=== PATIENT | male | born 1990 | race Caucasian/White ===

== ENCOUNTER 2023-04-30 17:47 | Emergency (ER) | payer MEDICAID ==
[~2023-04-30] VITALS: Ht 167.6 cm; Wt 75.0 kg
[2023-04-30 18:05] VITALS: TEMP 98.9; O2SAT 99
[2023-04-30] MEDS ORDERED: IBUPROFEN 600MG TABLET PO ONE (21:45)
[2023-04-30] MEDS ORDERED: CLINDAMYCIN HCL 150MG CAPSULE PO SCH (21:45)
[2023-04-30 23:30] VITALS: BP 130/66; PULSE 80; RESP 16
[2023-04-30] MEDS ORDERED: IBUPROFEN 600MG TABLET PO NR (23:30)
[2023-05-01] MEDS ORDERED: CLIN-194 MT (02:16)
== END 2023-05-01 02:28 | disposition left against medical advice (07) ==
LOC: ER 18:06
DX: H02.89 Other specified disorders of eyelid (principal)
CPT/HCPCS: 99284

== ENCOUNTER 2023-08-26 12:36 | Emergency (ER) | payer MEDICAID ==
[~2023-08-26] VITALS: Ht 172.7 cm; Wt 79.0 kg
[~2023-08-26 12:36] MED LIST: CLIN-194 MT
[2023-08-26 12:41] VITALS: O2SAT 98
[2023-08-26] MEDS: KETOROLAC 60MG/2ML VIAL IM STA (12:48)
[2023-08-26] MEDS ORDERED: IBUP-2029 PO (14:11)
[2023-08-26 15:22] VITALS: BP 133/74; PULSE 100; RESP 16; TEMP 98
== END 2023-08-26 15:27 | disposition home or self-care (01) ==
LOC: ER 12:36
DX: S62.306A Unspecified fracture of fifth metacarpal bone, right hand, initial encounter for closed fracture (principal); X58.XXXA Exposure to other specified factors, initial encounter; Y93.89 Activity, other specified; Y92.89 Other specified places as the place of occurrence of the external cause; Y99.8 Other external cause status
CPT/HCPCS: 99284; 73110; 73130; 96372; J1885

== ENCOUNTER 2023-11-04 12:14 | Emergency (ER) | payer MEDICAID ==
[~2023-11-04] VITALS: Ht 167.6 cm; Wt 70.0 kg
[~2023-11-04 12:14] MED LIST changes: +IBUP-2029 PO
[2023-11-04 12:20] VITALS: O2SAT 99
[2023-11-04 16:07] LABS: BASOPHILS % 1.2 % (0.0-2.0); DIFFERENTIAL COMMENT 0; EOSINOPHILS % 0.9 % (0.0-5.0); HEMATOCRIT. 22.8 % (42.0-52.0); HEMOGLOBIN. 7.5 g/dL (14.0-18.0); LYMPHOCYTES % 19.3 % (20.0-50.0); MEAN CORPUSCULAR HEMOGLOBIN 24.9 pg (28.0-32.0); MEAN CORPUSCULAR HGB CONC 32.9 g/dL (31.0-37.0); MEAN CORPUSCULAR VOLUME 75.6 fL (80.0-94.0); MEAN PLATELET VOLUME 8.6 fl (7.4-10.4); MONOCYTES % 9.7 % (2.0-8.0); NEUTROPHILS % 68.9 % (40.0-76.0); PLATELET 110 x1000/uL (130-400); RED BLOOD CELL COUNT 3.01 mill/uL (4.7-6.1); WHITE BLOOD COUNT 5.7 x1000/uL (4.5-11.0)
[2023-11-04 16:12] LABS: CHLORIDE 97 mEq/L (98-107); POTASSIUM 3.7 mEq/L (3.5-5.1); SODIUM 133 mEq/L (136-145)
[2023-11-04 16:14] LABS: CALCIUM 9.5 mg/dL (8.7-10.4); CARBON DIOXIDE 25 mEq/L (21-32)
[2023-11-04 16:19] LABS: CREATININE 0.7 mg/dL (0.6-1.3); GLUCOSE 90 mg/dL (70-105); UREA NITROGEN BLOOD 19 mg/dL (9-23)
[2023-11-04] MEDS: SODIUM CHLORIDE 0.9% 1,000 ML IV ONE (17:42)
[2023-11-04] MEDS: ONDANSETRON HCL 4MG/2ML INJ IV STA (17:47)
[2023-11-04] MEDS: ACETAMINOPHEN 325MG TABLET PO STA (17:48)
[2023-11-04 18:25] LABS: CREATINE KINASE 113 IU/L (46-171)
[2023-11-04 18:26] VITALS: BP 114/64; PULSE 88; RESP 14; TEMP 98
== END 2023-11-04 18:27 | disposition home or self-care (01) ==
LOC: ER 12:14
DX: S46.912A Strain of unspecified muscle, fascia and tendon at shoulder and upper arm level, left arm, initial encounter (principal); S46.911A Strain of unspecified muscle, fascia and tendon at shoulder and upper arm level, right arm, initial encounter; X58.XXXA Exposure to other specified factors, initial encounter; Y93.89 Activity, other specified; Y92.89 Other specified places as the place of occurrence of the external cause; Y99.8 Other external cause status
CPT/HCPCS: 99284; 96374; 71045; 96361; 80048; 82550; 85025; 36415; 73030; 73060; J2405; J7030

== ENCOUNTER 2024-02-27 15:03 | Emergency (ER) | payer MEDICAID ==
[~2024-02-27] VITALS: Ht 167.6 cm; Wt 65.0 kg
[2024-02-27 15:16] VITALS: O2SAT 99
[2024-02-27] MEDS ORDERED: BO1 TP (20:12)
[2024-02-27 20:34] VITALS: BP 111/58; PULSE 79; RESP 16; TEMP 36.83628; O2SAT 99
== END 2024-02-27 20:44 | disposition home or self-care (01) ==
LOC: ER 15:03
DX: S61.300A Unspecified open wound of right index finger with damage to nail, initial encounter (principal); X58.XXXA Exposure to other specified factors, initial encounter; Y93.89 Activity, other specified; Y92.89 Other specified places as the place of occurrence of the external cause; Y99.8 Other external cause status
CPT/HCPCS: 99282; Z7610 ×2

== ENCOUNTER 2024-09-02 12:11 | Emergency (ER) | payer MEDICAID ==
[~2024-09-02] VITALS: Ht 167.6 cm; Wt 68.0 kg
[~2024-09-02 12:11] MED LIST changes: +BO1 TP
[2024-09-02 12:29] VITALS: TEMP 36.6; O2SAT 98
[2024-09-02] MEDS ORDERED: CLIN-194 MT (14:21)
[2024-09-02 15:50] VITALS: BP 130/72; PULSE 97; RESP 18; O2SAT 98
== END 2024-09-02 15:55 | disposition home or self-care (01) ==
LOC: ER 12:11
DX: L03.114 Cellulitis of left upper limb (principal); L70.9 Acne, unspecified; J45.909 Unspecified asthma, uncomplicated; Z79.899 Other long term (current) drug therapy
CPT/HCPCS: 99283

== ENCOUNTER 2024-09-23 22:54 | Inpatient (IN) | payer MEDICAID ==
[~2024-09-23] VITALS: Ht 167.6 cm; Wt 65.8 kg
[2024-09-23] MEDS: PANTOPRAZOLE SODIUM 40 MG/VIAL IV ONE (23:15)
[2024-09-23] MEDS: OCTREOTIDE 1,000 MCG in SODIUM CHLORIDE 0.9% 98 ML IV ONE (23:15)
[2024-09-23 23:27] LABS: MEAN CORPUSCULAR HGB CONC 28.9 g/dL (31.0-37.0); MEAN CORPUSCULAR VOLUME 72.7 fL (80.0-94.0); MEAN PLATELET VOLUME 9.7 fl (7.4-10.4); PLATELET 134 x1000/uL (130-400); RED BLOOD CELL COUNT 1.36 mill/uL (4.7-6.1); WHITE BLOOD COUNT 10.1 x1000/uL (4.5-11.0)
[2024-09-23 23:33] LABS: CARBON DIOXIDE 18 mEq/L (21-32); CHLORIDE 94 mEq/L (98-107); POTASSIUM 3.6 mEq/L (3.5-5.1); SODIUM 132 mEq/L (136-145)
[2024-09-23 23:34] LABS: CALCIUM 7.4 mg/dL (8.7-10.4)
[2024-09-23] MEDS: ONDANSETRON HCL 4MG/2ML INJ IV STA (23:37)
[2024-09-23 23:39] LABS: ETHANOL BLOOD 237 mg/dL (<10); GLUCOSE 165 mg/dL (70-105); TROPONIN I HIGH SENSITIVITY 5 ng/L (3.0-53); UREA NITROGEN BLOOD 39 mg/dL (9-23)
[2024-09-23 23:40] LABS: ALANINE AMINOTRANSFERASE 144 IU/L (10-49); ALBUMIN 2.4 g/dL (3.2-4.8); ASPARTATE AMINOTRANSFERASE 413 IU/L (<34)
[2024-09-23 23:41] LABS: BILIRUBIN TOTAL 1.9 mg/dL (0.1-1.0); DIFFERENTIAL COMMENT 1; HEMATOCRIT. 9.9 % (42.0-52.0); HEMOGLOBIN. 2.8 g/dL (14.0-18.0); PROTEIN TOTAL 5.1 g/dL (6.0-8.3)
[2024-09-23 23:42] LABS: PROTHROMBIN TIME 20.3 sec (9.6-11.0)
[2024-09-23] MEDS: CEFTRIAXONE 1GM/50ML 50 ML IV ONE (23:46)
[2024-09-23 23:58] LABS: CREATININE 1.4 mg/dL (0.6-1.3)
[2024-09-24] VITALS (27 sets, daily range): BP systolic 104–129; BP diastolic 35–74; PULSE 15–128; RESP 11–30; TEMP 36.28068–37.7; O2SAT 99–100
[2024-09-24 00:02] LABS: HYPOCHROMASIA 2+; MICROCYTOSIS 1+; PLATELET ESTIMATE NORMAL
[2024-09-24] MEDS: PANTOPRAZOLE 80 MG in SODIUM CHLORIDE 0.9% 100 ML IV SCH ×2 (00:58→22:22)
[2024-09-24] MEDS: PANTOPRAZOLE SODIUM 40 MG/VIAL IV NR (01:39)
[2024-09-24 02:06] LABS: TROPONIN I HIGH SENSITIVITY 8 ng/L (3.0-53)
[2024-09-24] MEDS ORDERED: DOCUSATE SODIUM 100MG CAPSULE PO PRN (03:15)
[2024-09-24] MEDS ORDERED: IPRATROPIUM/ALBUTEROL 0.5-3(2.5)MG/3ML NEB HHN PRN (03:15)
[2024-09-24] MEDS ORDERED: DEXTROSE 50% WATER 50ML SYRINGE IV PRN (03:15)
[2024-09-24] MEDS ORDERED: MAGNESIUM/ALUMINUM HYDROXIDE/SIMETHICONE 30ML UDC PO PRN (03:15)
[2024-09-24] MEDS ORDERED: CLONIDINE 0.1MG TABLET PO PRN (03:15)
[2024-09-24] MEDS ORDERED: NALOXONE HCL 0.4MG/ML VIAL IV PRN (03:30)
[2024-09-24] MEDS: ONDANSETRON HCL 4MG/2ML INJ IV PRN (03:31)
[2024-09-24] MEDS: SODIUM CHLORIDE 0.9% 1,000 ML IV SCH ×2 (03:47→09:45)
[2024-09-24 04:10] LABS: IRON 37 ug/dL (65-175)
[2024-09-24 04:13] LABS: TOTAL IRON BINDING CAPACITY 257 ug/dl (250-425)
[2024-09-24] MEDS: INSULIN LISPRO 100 UNITS/ML SUBCUT SCH (08:00)
[2024-09-24] MEDS: ACETAMINOPHEN 325MG TABLET PO PRN (10:45)
[2024-09-24 16:44] LABS: FOLIC ACID (FOLATE) SERUM 4.11 ng/mL (>5.38)
[2024-09-24 16:45] LABS: VITAMIN B12 SERUM 1326 pg/mL (211-911)
[2024-09-24 18:25] LABS: HEPATITIS B SURFACE ANTIGEN NEGATIVE (Negative)
[2024-09-24 18:45] LABS: HEPATITIS A AB IGM NEGATIVE (Negative)
[2024-09-24 18:46] LABS: HEPATITIS B CORE AB IGM NEGATIVE (Negative); HEPATITIS C AB NON REACTIVE (Neg) (Negative)
[2024-09-24] MEDS ORDERED: Venofer 200mg IV x3 days XX SCH (20:00)
[2024-09-24 20:30] LABS: CLARITY URINE CLEAR (CLEAR); COLOR URINE DARK YELLOW (YELLOW); GLUCOSE URINE NEGATIVE (NEGATIVE); KETONES URINE NEGATIVE (NEGATIVE); LEUKOCYTE ESTERASE URINE TRACE (NEGATIVE); NITRITE URINE NEGATIVE (NEGATIVE); OCCULT BLOOD URINE TRACE (NEGATIVE); PROTEIN URINE 2+ (NEGATIVE); SPECIFIC GRAVITY URINE 1.029 (1.005-1.030)
[2024-09-24] MEDS: IRON SUCROSE COMPLEX 100 MG/5 ML ML IV SCH (20:33)
[2024-09-24 20:46] LABS: *AMPHETAMINES SCREEN URINE NEGATIVE (NEGATIVE)
[2024-09-24 20:47] LABS: *BENZODIAZEPINES SCREEN URINE NEGATIVE (NEGATIVE)
[2024-09-24 20:48] LABS: *BARBITURATES SCREEN URINE NEGATIVE (NEGATIVE); *COCAINE SCREEN URINE NEGATIVE (NEGATIVE); CANNABINOID URINE SCREEN PRESUMPTIVE POSITIVE (NEGATIVE); ECSTASY MDMA SCREEN URINE NEGATIVE (NEGATIVE); METHADONE URINE SCREEN NEGATIVE (NEGATIVE); OPIATES URINE SCREEN NEGATIVE (NEGATIVE); PHENCYCLIDINE URINE SCREEN NEGATIVE (NEGATIVE)
[2024-09-24] MEDS: FOLIC ACID 1 MG, THIAMINE HCL 100 MG, MVI, ADULT NO.1 10 ML in DEXTROSE 5% WATER 1,000 ML IV SCH (20:53)
[2024-09-24] MEDS ORDERED: PANTOPRAZOLE SODIUM 40 MG/VIAL IV SCH (21:00)
[2024-09-24 21:26] LABS: BACTERIA URINE TRACE; SQUAMOUS EPITHELIAL CELL URINE RARE /lpf (RARE/1+)
[2024-09-25] VITALS (17 sets, daily range): BP systolic 93–122; BP diastolic 46–76; PULSE 64–90; RESP 13–39; TEMP 36.4–37.5; O2SAT 95–100
[2024-09-25 05:30] LABS: CALCIUM 7.1 mg/dL (8.7-10.4); CARBON DIOXIDE 27 mEq/L (21-32); CHLORIDE 96 mEq/L (98-107); POTASSIUM 3.6 mEq/L (3.5-5.1); SODIUM 130 mEq/L (136-145)
[2024-09-25 05:35] LABS: CREATININE 0.9 mg/dL (0.6-1.3); GLUCOSE 132 mg/dL (70-105)
[2024-09-25 05:36] LABS: LDL CHOLESTEROL 77 mg/dL (5-100); T4 FREE 0.81 ng/dL (0.89-1.76); TRIGLYCERIDE 102 mg/dL (0-150); UREA NITROGEN BLOOD 34 mg/dL (9-23)
[2024-09-25 05:37] LABS: ALANINE AMINOTRANSFERASE 359 IU/L (10-49); ALBUMIN 2.6 g/dL (3.2-4.8); ASPARTATE AMINOTRANSFERASE 862 IU/L (<34); BILIRUBIN DIRECT 1.8 mg/dL (<=3.0); CHOLESTEROL 119 mg/dL (<200); HDL CHOLESTEROL < 20 mg/dL (>55); PHOSPHORUS 1.4 mg/dL (2.5-4.9)
[2024-09-25 05:38] LABS: BILIRUBIN TOTAL 3.8 mg/dL (0.1-1.0); PROTEIN TOTAL 5.3 g/dL (6.0-8.3)
[2024-09-25 05:42] LABS: TROPONIN I HIGH SENSITIVITY < 4 ng/L (3.0-53)
[2024-09-25 06:54] LABS: BASOPHILS % 0.2 % (0.0-2.0); EOSINOPHILS % 0.6 % (0.0-5.0); HEMATOCRIT. 22.9 % (42.0-52.0); HEMOGLOBIN. 7.6 g/dL (14.0-18.0); LYMPHOCYTES % 17.4 % (20.0-50.0); MEAN CORPUSCULAR HEMOGLOBIN 27.1 pg (28.0-32.0); MEAN CORPUSCULAR HGB CONC 33.1 g/dL (31.0-37.0); MEAN CORPUSCULAR VOLUME 82.1 fL (80.0-94.0); MEAN PLATELET VOLUME 9.3 fl (7.4-10.4); MONOCYTES % 12.3 % (2.0-8.0); NEUTROPHILS % 69.5 % (40.0-76.0); PLATELET 79 x1000/uL (130-400); RED BLOOD CELL COUNT 2.79 mill/uL (4.7-6.1); RED CELL DISTRIBUTION WIDTH 21.6 % (11.6-14.6); WHITE BLOOD COUNT 6.5 x1000/uL (4.5-11.0)
[2024-09-25 21:30] LABS: INR 1.6; PROTHROMBIN TIME 16.3 sec (9.6-11.0)
[2024-09-25 22:03] LABS: HEMATOCRIT 21.5 % (42.0-52.0)
[2024-09-25] MEDS: MELATONIN 3MG TABLET PO PRN (23:58)
[2024-09-26] VITALS (21 sets, daily range): BP systolic 98–123; BP diastolic 55–78; PULSE 62–88; RESP 12–24; TEMP 36.7–37.6; O2SAT 97–100
[2024-09-26 06:16] LABS: CHLORIDE 97 mEq/L (98-107); POTASSIUM 3.3 mEq/L (3.5-5.1); SODIUM 131 mEq/L (136-145)
[2024-09-26 06:17] LABS: CALCIUM 7.7 mg/dL (8.7-10.4); CARBON DIOXIDE 29 mEq/L (21-32)
[2024-09-26] MEDS: OCTREOTIDE 1,000 MCG in SODIUM CHLORIDE 0.9% 98 ML IV SCH (06:19)
[2024-09-26 06:22] LABS: CREATININE 0.7 mg/dL (0.6-1.3); GLUCOSE 102 mg/dL (70-105)
[2024-09-26 06:23] LABS: UREA NITROGEN BLOOD 17 mg/dL (9-23)
[2024-09-26 06:24] LABS: ALANINE AMINOTRANSFERASE 268 IU/L (10-49); ALBUMIN 2.6 g/dL (3.2-4.8); ASPARTATE AMINOTRANSFERASE 444 IU/L (<34); BILIRUBIN DIRECT 2.1 mg/dL (<=3.0)
[2024-09-26 06:25] LABS: BILIRUBIN TOTAL 3.9 mg/dL (0.1-1.0); PHOSPHORUS 1.7 mg/dL (2.5-4.9); PROTEIN TOTAL 5.4 g/dL (6.0-8.3)
[2024-09-26 06:29] LABS: BASOPHILS % 0.5 % (0.0-2.0); HEMATOCRIT. 24.3 % (42.0-52.0); HEMOGLOBIN. 8.1 g/dL (14.0-18.0); LYMPHOCYTES % 15.6 % (20.0-50.0); MEAN CORPUSCULAR HEMOGLOBIN 26.9 pg (28.0-32.0); MEAN CORPUSCULAR HGB CONC 33.2 g/dL (31.0-37.0); MONOCYTES % 13.2 % (2.0-8.0); NEUTROPHILS % 67.7 % (40.0-76.0); PLATELET 85 x1000/uL (130-400); RED CELL DISTRIBUTION WIDTH 20.6 % (11.6-14.6); WHITE BLOOD COUNT 5.6 x1000/uL (4.5-11.0)
[2024-09-26 06:42] LABS: INR 1.6; PROTHROMBIN TIME 16.1 sec (9.6-11.0)
[2024-09-26] MEDS: PANTOPRAZOLE SODIUM 40 MG/VIAL IV SCH (09:12)
[2024-09-26] MEDS ORDERED: PROPOFOL 200MG/20ML VIAL IV ONE ×2 (13:18→14:17)
[2024-09-26] MEDS ORDERED: HYDROMORPHONE HCL/PF 1MG/ML INJ IV PRN (14:00)
[2024-09-26] MEDS ORDERED: ONDANSETRON HCL 4MG/2ML INJ IV PRN (14:00)
[2024-09-26] MEDS ORDERED: LABETALOL 5MG/ML 4ML INJ IV PRN (14:00)
[2024-09-26] MEDS ORDERED: MEPERIDINE HCL/PF 25MG/ML CPJ IV PRN (14:00)
[2024-09-26] MEDS: CARVEDILOL 3.125 MG TABLET PO SCH (20:59)
[2024-09-26] MEDS: HYDROCODONE/ACETAMINOPHEN 5/325MG TABLET PO PRN (22:15)
[2024-09-27] VITALS (12 sets, daily range): BP systolic 93–125; BP diastolic 55–74; PULSE 61–86; RESP 15–28; TEMP 36.6–37.8; O2SAT 94–99
[2024-09-27 06:56] LABS: BASOPHILS % 0.6 % (0.0-2.0); EOSINOPHILS % 3.6 % (0.0-5.0); HEMATOCRIT. 25.2 % (42.0-52.0); HEMOGLOBIN. 8.2 g/dL (14.0-18.0); INR 1.7; LYMPHOCYTES % 14.8 % (20.0-50.0); MEAN CORPUSCULAR HEMOGLOBIN 26.8 pg (28.0-32.0); MEAN CORPUSCULAR HGB CONC 32.7 g/dL (31.0-37.0); MEAN CORPUSCULAR VOLUME 82.1 fL (80.0-94.0); MEAN PLATELET VOLUME 8.9 fl (7.4-10.4); MONOCYTES % 14.7 % (2.0-8.0); NEUTROPHILS % 66.3 % (40.0-76.0); PLATELET 93 x1000/uL (130-400); PROTHROMBIN TIME 17.2 sec (9.6-11.0); RED BLOOD CELL COUNT 3.07 mill/uL (4.7-6.1); RED CELL DISTRIBUTION WIDTH 21.4 % (11.6-14.6); WHITE BLOOD COUNT 5.8 x1000/uL (4.5-11.0)
[2024-09-27 07:03] LABS: CHLORIDE 98 mEq/L (98-107); POTASSIUM 3.4 mEq/L (3.5-5.1); SODIUM 133 mEq/L (136-145)
[2024-09-27 07:05] LABS: CALCIUM 7.9 mg/dL (8.7-10.4); CARBON DIOXIDE 27 mEq/L (21-32)
[2024-09-27 07:10] LABS: CREATININE 0.7 mg/dL (0.6-1.3); GLUCOSE 93 mg/dL (70-105); UREA NITROGEN BLOOD 13 mg/dL (9-23)
[2024-09-27 07:11] LABS: ALANINE AMINOTRANSFERASE 205 IU/L (10-49); ALBUMIN 2.6 g/dL (3.2-4.8)
[2024-09-27 07:12] LABS: ASPARTATE AMINOTRANSFERASE 252 IU/L (<34); BILIRUBIN DIRECT 2.2 mg/dL (<=3.0); BILIRUBIN TOTAL 3.9 mg/dL (0.1-1.0); PROTEIN TOTAL 5.4 g/dL (6.0-8.3)
[2024-09-27] MEDS: POTASSIUM CHLORIDE 20MEQ TABLET SR PO PRN (09:35)
[2024-09-28] VITALS (11 sets, daily range): BP systolic 106–123; BP diastolic 52–73; PULSE 66–83; RESP 6–28; TEMP 36.7–37.1; O2SAT 95–100
[2024-09-28] MEDS: SODIUM CHLORIDE 0.9% 500 ML IV ONE (08:30)
[2024-09-28] MEDS: PHYTONADIONE 10MG/ML INJ SUBCUT SCH (09:18)
[2024-09-28] MEDS ORDERED: COR3 PO (11:26)
[2024-09-28] MEDS ORDERED: FOLI-43 MT (11:26)
[2024-09-28] MEDS ORDERED: FERR325T6 MT (11:26)
[2024-09-29] VITALS (12 sets, daily range): BP systolic 107–124; BP diastolic 57–74; PULSE 68–80; RESP 12–25; TEMP 36.9–37.1; O2SAT 96–100
[2024-09-29] MEDS: HYDROCODONE/ACETAMINOPHEN 5/325MG TABLET PO NR (06:17)
[2024-09-29 08:10] LABS: CHLORIDE 103 mEq/L (98-107); POTASSIUM 4.2 mEq/L (3.5-5.1); SODIUM 134 mEq/L (136-145)
[2024-09-29 08:13] LABS: CARBON DIOXIDE 25 mEq/L (21-32)
[2024-09-29 08:14] LABS: CALCIUM 8.3 mg/dL (8.7-10.4)
[2024-09-29 08:18] LABS: CREATININE 0.6 mg/dL (0.6-1.3); GLUCOSE 91 mg/dL (70-105)
[2024-09-29 08:19] LABS: UREA NITROGEN BLOOD 13 mg/dL (9-23)
[2024-09-29 08:20] LABS: ALANINE AMINOTRANSFERASE 120 IU/L (10-49); ALBUMIN 2.6 g/dL (3.2-4.8); ASPARTATE AMINOTRANSFERASE 104 IU/L (<34)
[2024-09-29 08:21] LABS: BILIRUBIN DIRECT 1.8 mg/dL (<=3.0); BILIRUBIN TOTAL 2.8 mg/dL (0.1-1.0); PROTEIN TOTAL 5.5 g/dL (6.0-8.3)
[2024-09-29 08:33] LABS: HEMATOCRIT. 27.1 % (42.0-52.0); HEMOGLOBIN. 8.7 g/dL (14.0-18.0); MEAN CORPUSCULAR HEMOGLOBIN 27.3 pg (28.0-32.0); MEAN CORPUSCULAR HGB CONC 32.1 g/dL (31.0-37.0); MEAN CORPUSCULAR VOLUME 85.1 fL (80.0-94.0); MEAN PLATELET VOLUME 9.2 fl (7.4-10.4); PLATELET 114 x1000/uL (130-400); RED BLOOD CELL COUNT 3.19 mill/uL (4.7-6.1); RED CELL DISTRIBUTION WIDTH 24.9 % (11.6-14.6); WHITE BLOOD COUNT 5.8 x1000/uL (4.5-11.0)
[2024-09-29 08:51] LABS: DIFFERENTIAL COMMENT 1
[2024-09-29 17:42] LABS: ANISOCYTOSIS 3+; PLATELET ESTIMATE SLIGHTLY DECREASED
[2024-09-30] VITALS (9 sets, daily range): BP systolic 96–116; BP diastolic 51–73; PULSE 60–77; RESP 16–22; TEMP 36.6–37.00296; O2SAT 98–100
[2024-09-30] MEDS: PHYTONADIONE 10 MG in DEXTROSE 5% WATER 49 ML IV NR (12:09)
[2024-09-30 16:46] LABS: INR 1.3; PROTHROMBIN TIME 13.8 sec (9.6-11.0)
[2024-09-30 20:58] LABS: HEMATOCRIT. 26.7 % (42.0-52.0); HEMOGLOBIN. 8.6 g/dL (14.0-18.0); MEAN CORPUSCULAR HEMOGLOBIN 27.9 pg (28.0-32.0); MEAN CORPUSCULAR HGB CONC 32.2 g/dL (31.0-37.0); MEAN CORPUSCULAR VOLUME 86.8 fL (80.0-94.0); MEAN PLATELET VOLUME 8.9 fl (7.4-10.4); PLATELET 126 x1000/uL (130-400); RED BLOOD CELL COUNT 3.08 mill/uL (4.7-6.1); RED CELL DISTRIBUTION WIDTH 26.4 % (11.6-14.6); WHITE BLOOD COUNT 4.9 x1000/uL (4.5-11.0)
[2024-09-30 21:08] LABS: DIFFERENTIAL COMMENT 1
[2024-09-30 21:11] LABS: INR 1.3
[2024-09-30 21:32] LABS: ANISOCYTOSIS 2+; PLATELET ESTIMATE DECREASED
[2024-10-01] VITALS: BP 116/71; PULSE 73; RESP 19; TEMP 36.8; O2SAT 100
[2024-10-01 06:00] VITALS: BP 124/60; PULSE 40; RESP 16; TEMP 36.8; O2SAT 100
[2024-10-01 07:55] LABS: HEMATOCRIT. 27.7 % (42.0-52.0); HEMOGLOBIN. 8.7 g/dL (14.0-18.0); MEAN CORPUSCULAR HEMOGLOBIN 27.5 pg (28.0-32.0); MEAN CORPUSCULAR HGB CONC 31.5 g/dL (31.0-37.0); MEAN CORPUSCULAR VOLUME 87.4 fL (80.0-94.0); MEAN PLATELET VOLUME 8.3 fl (7.4-10.4); PLATELET 118 x1000/uL (130-400); RED BLOOD CELL COUNT 3.17 mill/uL (4.7-6.1); WHITE BLOOD COUNT 4.2 x1000/uL (4.5-11.0)
[2024-10-01 07:57] LABS: DIFFERENTIAL COMMENT 1
[2024-10-01 08:00] VITALS: BP 119/75; PULSE 67; RESP 18; TEMP 36.4; O2SAT 100
[2024-10-01 08:02] LABS: CARBON DIOXIDE 25 mEq/L (21-32); CHLORIDE 108 mEq/L (98-107); POTASSIUM 4.3 mEq/L (3.5-5.1); SODIUM 136 mEq/L (136-145)
[2024-10-01 08:03] LABS: CALCIUM 8.4 mg/dL (8.7-10.4)
[2024-10-01 08:08] LABS: CREATININE 0.5 mg/dL (0.6-1.3); GLUCOSE 94 mg/dL (70-105); UREA NITROGEN BLOOD 12 mg/dL (9-23)
[2024-10-01 08:18] LABS: INR 1.4; PROTHROMBIN TIME 14.2 sec (9.6-11.0)
[2024-10-01 12:00] VITALS: BP 120/61; PULSE 72; RESP 18; TEMP 36.4; O2SAT 100
[2024-10-01 13:16] LABS: ATYPICAL LYMPHOCYTES 1
[2024-10-01 13:17] LABS: PLATELET ESTIMATE SLIGHTLY DECREASED
[2024-10-01 13:18] LABS: ANISOCYTOSIS 1+; HYPOCHROMASIA 1+
[2024-10-01 16:00] VITALS: BP 115/65; PULSE 70; RESP 18; TEMP 36.7; O2SAT 100
[2024-10-01 20:00] VITALS: BP 116/71; PULSE 74; RESP 18; TEMP 36.7; O2SAT 99
[2024-10-02] VITALS: BP 113/62; PULSE 70; RESP 19; TEMP 36.8; O2SAT 100
[2024-10-02 04:00] VITALS: BP 121/73; PULSE 70; RESP 18; TEMP 36.6; O2SAT 99
[2024-10-02 08:00] VITALS: BP 117/74; PULSE 76; RESP 20; TEMP 35.8; O2SAT 100
[2024-10-02] MEDS: IOHEXOL-350 100 ML BOTTLE ONE (08:37)
[2024-10-02] MEDS ORDERED: COR3 PO (10:08)
[2024-10-02] MEDS ORDERED: MELA3TAB40 PO (10:08)
[2024-10-02 12:00] VITALS: BP 102/65; PULSE 71; RESP 20; TEMP 36.7; O2SAT 100
[2024-10-02 14:10] VITALS: BP 102/65; PULSE 77; TEMP 98.7; O2SAT 100
== END 2024-10-02 15:26 | disposition home or self-care (01) ==
LOC: ER 22:54 → EDBEDREQ 23:30 → 5EST 09-24 01:27 → EDBEDREQ 09-24 01:32 → EDBEDREQDT 09-24 01:32 → EDBEDREQSVC 09-24 01:32 → EDBEDREQTM 09-24 01:32 → EDBEDREQ 09-24 01:33 → 8EST 09-30 00:32
PROVIDERS: ADMIT Family Medicine Adult Medicine; ATTEND Family Medicine Adult Medicine
PROC: 30233N1 Transfusion of Nonautologous Red Blood Cells into Peripheral Vein, Percutaneous Approach (ICD-10-PCS; 2024-09-23)
PROC: 30233K1 Transfusion of Nonautologous Frozen Plasma into Peripheral Vein, Percutaneous Approach (ICD-10-PCS; 2024-09-25)
PROC: 0DJ08ZZ Inspection of Upper Intestinal Tract, Via Natural or Artificial Opening Endoscopic (ICD-10-PCS; principal; 2024-09-26)
DX: K74.60 Unspecified cirrhosis of liver (principal); I85.11 Secondary esophageal varices with bleeding; N17.9 Acute kidney failure, unspecified; D68.9 Coagulation defect, unspecified; D69.6 Thrombocytopenia, unspecified; K76.6 Portal hypertension; K31.89 Other diseases of stomach and duodenum; F10.229 Alcohol dependence with intoxication, unspecified; J45.909 Unspecified asthma, uncomplicated; D50.9 Iron deficiency anemia, unspecified; E53.8 Deficiency of other specified B group vitamins; K80.20 Calculus of gallbladder without cholecystitis without obstruction; R16.1 Splenomegaly, not elsewhere classified
CPT/HCPCS: 36415; 36430; 71045; 74176; 74178; 74181; 76700; 80048; 80061; 80076; 80305; 80320; 81003; 82105; 82607; 82746; 82962; 83036; 83540; 83550; 83735; 84100; 84425; 84439; 84443; 84484; 85014; 85018; 85025; 85044; 86705; 86709; 86850; 86900; 86920; 86927; 87340; 93005; 93970; 99291; A4606; J0696; J1815; J2354; J2405; J2470; J2704; J3411; J3430; J3490; J7030; J7050; J7060; J7070; P9016; P9017; Q9967; G0480

== ENCOUNTER 2025-01-28 17:29 | Emergency (ER) | payer MEDICAID ==
[~2025-01-28] VITALS: Ht 167.6 cm; Wt 68.9 kg
[~2025-01-28 17:29] MED LIST changes: -BO1 TP; -CLIN-194 MT; +COR3 PO; +FERR325T6 MT; +FOLI-43 MT; -IBUP-2029 PO; +MELA3TAB40 PO
[2025-01-28 17:31] VITALS: O2SAT 99
[2025-01-28 17:32] VITALS: BP 145/76; PULSE 100; RESP 16; O2SAT 98
[2025-01-28] MEDS: ONDANSETRON 4MG ODT PO ONE (22:56)
[2025-01-28] MEDS ORDERED: IBUP-2030 MT (23:39)
== END 2025-01-29 00:35 | disposition home or self-care (01) ==
LOC: ER 17:29
DX: S62.521A Displaced fracture of distal phalanx of right thumb, initial encounter for closed fracture (principal); J45.909 Unspecified asthma, uncomplicated; X58.XXXA Exposure to other specified factors, initial encounter; Y93.89 Activity, other specified; Y92.89 Other specified places as the place of occurrence of the external cause; Y99.8 Other external cause status
CPT/HCPCS: 99283; 73130; 29125; Q0162

== ENCOUNTER 2025-03-05 11:38 | Emergency (ER) | payer MEDICAID ==
[~2025-03-05] VITALS: Ht 167.6 cm; Wt 60.0 kg
[~2025-03-05 11:38] MED LIST changes: +IBUP-2030 MT
[2025-03-05 11:43] VITALS: TEMP 36.8; O2SAT 97; O2SAT 98
[2025-03-05 15:30] VITALS: BP 116/68; PULSE 70; RESP 17
[2025-03-05] MEDS: MORPHINE SULFATE 4 MG/ML INJ (FOR IV/IM USE) IM ONE (15:30)
[2025-03-05] MEDS: LIDOCAINE HCL 1% 20ML VIAL INL ONE (15:30)
[2025-03-05] MEDS: BACITRACIN ZINC OINT UDPKT TOP ONE (15:30)
[2025-03-05] MEDS ORDERED: IBUP-1455 MT (18:08)
[2025-03-05] MEDS ORDERED: HYDR-4009 MT (18:08)
[2025-03-05] MEDS ORDERED: BO1 TP (18:12)
== END 2025-03-05 18:34 | disposition home or self-care (01) ==
LOC: ER 11:38
DX: S61.412A Laceration without foreign body of left hand, initial encounter (principal); T23.262A Burn of second degree of back of left hand, initial encounter; X58.XXXA Exposure to other specified factors, initial encounter; Y93.89 Activity, other specified; Y92.89 Other specified places as the place of occurrence of the external cause; Y99.8 Other external cause status
CPT/HCPCS: 73120; 12001; 96372; 99283; J2003; J2270; Z7610